=== PATIENT | female | born 1950 | race Caucasian/White ===

== ENCOUNTER 2017-08-10 10:35 | Inpatient (IN) | payer OTHER ==
[~2017-08-10 10:35] MED LIST: PROPOFOL 1000 MG INJ; SOD CHLORIDE 0.9% 1,000 ML IV
[2017-08-10] MEDS ORDERED: BUPIVACAINE 0.25% (MPF) 30 ML INJ (12:40)
[2017-08-10] MEDS: BUPIVACAINE 0.25% (MPF) 30 ML INJ INJ (13:08)
[2017-08-10] MEDS ORDERED: PROPOFOL 20 ML (13:15)
[2017-08-10] MEDS ORDERED: DEXAMETHASONE 4 MG/ML 1 ML INJ (13:15)
[2017-08-10] MEDS ORDERED: ONDANSETRON 4 MG INJ (13:15)
[2017-08-10] MEDS ORDERED: MIDAZOLAM 1 MG/ML 2 ML INJ (13:15)
[2017-08-10] MEDS ORDERED: ROCURONIUM 50 MG INJ (13:15)
[2017-08-10] MEDS ORDERED: CEFAZOLIN 1 GM INJ (13:15)
[2017-08-10] MEDS ORDERED: FENTAnyl 50 MCG/ML VIAL ×2 (13:15→13:43)
[2017-08-10] MEDS ORDERED: GLYCOPYRROLATE 0.4 MG INJ (13:15)
[2017-08-10] MEDS ORDERED: NEOSTIGMINE 3 MG/3 ML SYRINGE (13:15)
[2017-08-10] MEDS ORDERED: LABETALOL HCL 20MG INJ (14:01)
[2017-08-10] MEDS ORDERED: SUGAMMADEX SODIUM 200 MG/2 ML VIAL IV (14:24)
[2017-08-10] MEDS ORDERED: morphine 2 MG INJ (15:06)
[2017-08-10 15:29] LABS: ADD MAN DIFF? NO
[2017-08-10 15:31] LABS: WHITE BLOOD COUNT 8.6 10^3/ul (4.8-10.8)
[2017-08-10 15:31] LABS: BASOPHIL # 0.1 10^3/ul (0.0-0.1); BASOPHILS % 0.6 % (0.0-2.0); EOSINOPHILS # 0.1 10^3/ul (0.0-0.5); EOSINOPHILS % 1.2 % (0.0-7.0); HEMATOCRIT 38.9 % (37.0-47.0); LYMPHOCYTES # 1.6 10^3/ul (0.8-2.9); LYMPHOCYTES % 19.2 % (15.0-51.0); MEAN CORPUSCULAR HEMOGLOBIN 28.6 pg (29.0-33.0); MEAN CORPUSCULAR HGB CONC 33.4 g/dl (32.0-37.0); MEAN CORPUSCULAR VOLUME 85.7 fl (82.0-101.0); MEAN PLATELET VOLUME 9.5 fl (7.4-10.4); MONOCYTE # 0.5 10^3/ul (0.3-0.9); MONOCYTES % 6.1 % (0.0-11.0); NEUTROPHIL # 6.2 10^3/ul (1.6-7.5); NEUTROPHILS % 72.4 % (39.0-77.0); PLATELET COUNT 275 10^3/UL (140-415); RED BLOOD COUNT 4.54 10^6/ul (4.20-5.40); RED CELL DISTRIBUTION WIDTH 12.4 % (11.5-14.5)
[2017-08-10] MEDS: morphine 2 MG INJ IV ×2 (15:44→17:01)
[2017-08-10 15:59] LABS: ANION GAP 11 (8-16); BLOOD UREA NITROGEN 13 mg/dl (7-20); CARBON DIOXIDE 27 mmol/L (21-31); CHLORIDE 105 mmol/L (97-110); CREATININE 0.67 mg/dl (0.44-1.00); GLUCOSE 112 mg/dl (70-220); SODIUM 140 mmol/L (135-144)
[2017-08-10] MEDS ORDERED: POTASSIUM CHLORIDE 50 ML IVPB (16:30)
[2017-08-10] MEDS ORDERED: BENZONATATE 100 MG CAP PO (16:30)
[2017-08-10] MEDS ORDERED: OXYCODONE/ACETAMINOPHEN (5/325) TAB PO (16:30)
[2017-08-10] MEDS: SOD CHLORIDE 0.45% 1,000 ML IV (16:47)
[2017-08-10] MEDS: ACETAMINOPHEN 500 MG TAB PO (16:53)
[2017-08-10] MEDS: POTASSIUM CHLORIDE 20 MEQ POWDER FOR ORAL SOLN PO (16:53)
[2017-08-10] MEDS: LOSARTAN 50 MG TAB PO (17:00)
[2017-08-10] MEDS: HYDROCHLOROTHIAZIDE 25 MG TAB PO (17:00)
[2017-08-10] MEDS: ONDANSETRON 4 MG INJ IV (18:47)
[2017-08-10] MEDS: HYDROCODONE/APAP (5/325) TAB PO (19:30)
[2017-08-10] MEDS: CEFAZOLIN 2 GM/50 ML (PMX) 50 ML IVPB ×2 (20:00→21:42)
[2017-08-10] MEDS: BRIMONIDINE 0.2% 5 ML BTL BOTH EYES (21:40)
[2017-08-10] MEDS: DORZOLAMIDE/TIMOLOL 10 ML OPH BOTH EYES (21:40)
[2017-08-10] MEDS: LATANOPROST 0.005% 2.5 ML OPH BOTH EYES (21:41)
[2017-08-11] MEDS: SOD CHLORIDE 0.45% 1,000 ML IV ×2 (03:51→13:44)
[2017-08-11 05:09] LABS: ADD MAN DIFF? NO
[2017-08-11 05:14] LABS: BASOPHILS % 0.2 % (0.0-2.0); HEMATOCRIT 35.5 % (37.0-47.0); HEMOGLOBIN 11.7 g/dl (12.0-16.0); LYMPHOCYTES # 1.2 10^3/ul (0.8-2.9); LYMPHOCYTES % 13.9 % (15.0-51.0); MEAN CORPUSCULAR HEMOGLOBIN 28.7 pg (29.0-33.0); MEAN PLATELET VOLUME 10.1 fl (7.4-10.4); MONOCYTE # 0.8 10^3/ul (0.3-0.9); MONOCYTES % 8.6 % (0.0-11.0); NEUTROPHIL # 6.8 10^3/ul (1.6-7.5); NEUTROPHILS % 76.8 % (39.0-77.0); PLATELET COUNT 277 10^3/UL (140-415); RED BLOOD COUNT 4.08 10^6/ul (4.20-5.40); RED CELL DISTRIBUTION WIDTH 12.4 % (11.5-14.5)
[2017-08-11 05:14] LABS: WHITE BLOOD COUNT 8.9 10^3/ul (4.8-10.8)
[2017-08-11 05:36] LABS: ALANINE AMINOTRANSFERASE 23 IU/L (13-69); ALBUMIN 3.6 g/dl (3.3-4.9); ALKALINE PHOSPHATASE 79 IU/L (42-121); ANION GAP 13 (8-16); ASPARTATE AMINO TRANSFERASE 24 IU/L (15-46); BILIRUBIN,INDIRECT 0.2 mg/dl (0-1.1); BILIRUBIN,TOTAL 0.2 mg/dl (0.2-1.3); BLOOD UREA NITROGEN 16 mg/dl (7-20); CALCIUM 8.4 mg/dl (8.4-10.2); CARBON DIOXIDE 27 mmol/L (21-31); CHLORIDE 102 mmol/L (97-110); CREATININE 0.73 mg/dl (0.44-1.00); GLUCOSE 127 mg/dl (70-220); POTASSIUM 4.7 mmol/L (3.5-5.1); TOTAL PROTEIN 7.2 g/dl (6.1-8.1)
[2017-08-11 05:44] LABS: MAGNESIUM 1.8 mg/dl (1.7-2.5)
[2017-08-11 05:44] LABS: PHOSPHORUS 4.4 mg/dl (2.5-4.9)
[2017-08-11 05:55] LABS: SODIUM 137 mmol/L (135-144)
[2017-08-11] MEDS: CEFAZOLIN 2 GM/50 ML (PMX) 50 ML IVPB ×2 (06:26→14:11)
[2017-08-11] MEDS: LOSARTAN 50 MG TAB PO (08:49)
[2017-08-11] MEDS: HYDROCHLOROTHIAZIDE 25 MG TAB PO (08:49)
[2017-08-11] MEDS: BRIMONIDINE 0.2% 5 ML BTL BOTH EYES (08:49)
[2017-08-11] MEDS: DORZOLAMIDE/TIMOLOL 10 ML OPH BOTH EYES (08:49)
== END 2017-08-11 16:00 | disposition home or self-care (01) | DRG 627 ==
LOC: REC 10:35 → MS1 15:55
PROC: 0GTK0ZZ Resection of Thyroid Gland, Open Approach (ICD-10-PCS; principal; 2017-08-10 12:30)
DX: C73 Malignant neoplasm of thyroid gland (principal); I10 Essential (primary) hypertension; H40.9 Unspecified glaucoma
CPT/HCPCS: 80048; 80053; 83735; 84100; 85025; 88309